=== PATIENT | female | born 1935 | race Two or more races ===

== ENCOUNTER → 2021-12-05 | Outpatient (CLI) | payer MEDICAID ==
[~2021-12-05] MED LIST: IBUP400T22 PO
[2021-12-05 08:59] LABS: Alanine Aminotransferase 20 U/L (13-56); Alkaline Phosphatase 96 U/L (45-117); Anion Gap 8 (5-15); Aspartate Aminotransferase 17 U/L (15-37); BUN/Creatinine Ratio 18.5; Blood Urea Nitrogen 17 mg/dL (7-18); Calcium 9.2 mg/dL (8.5-10.1); Carbon Dioxide 24 mmol/L (21-32); Chloride 108 mmol/L (98-107); Glucose 107 mg/dL (74-106); Potassium 4.3 mmol/L (3.5-5.1); Sodium 140 mmol/L (136-145)
[2021-12-05 09:00] LABS: Albumin 3.9 g/dL (3.4-5.0); Bilirubin, Total 1.5 mg/dL (0.2-1.0); Cholesterol 174 mg/dL (< 200); HDL Cholesterol 35 mg/dL (40-59); Total Protein 7.6 g/dL (6.4-8.2); Triglycerides 470 mg/dL (< 150)
[2021-12-05 09:01] LABS: GFR African American 75 mL/min; GFR Non-African American 62 mL/min
[2021-12-05 09:25] LABS: Basophils # (auto) 0 10 ^3/uL (0-0.2); Eosinophils # (auto) 0.1 10 ^3/uL (0-0.8); Eosinophils % (auto) 2.2 % (0.0-7.0); Hemoglobin 14.1 g/dL (12.2-16.2); Lymphocytes # (auto) 1.1 10 ^3/uL (0.4-5.4); Lymphocytes % (auto) 22.8 % (10.0-50.0); Mean Corpuscular Hemoglobin 27.9 pg (28.0-32.0); Mean Corpuscular Hgb Conc. 32.8 g/dL (32.0-36.0); Mean Corpuscular Volume 85.2 fL (80.0-100.0); Monocytes # (auto) 0.5 10 ^3/uL (0-1.3); Monocytes % (auto) 10.6 % (0.0-12.0); Neutrophils # (auto) 3.2 10 ^3/uL (1.6-8.6); Neutrophils % (auto) 64.4 % (37.0-80.0); Nucleated Red Blood Cells % 0.2 %; Red Blood Cells 5.04 10^6/uL (4.0-5.20); Red Cell Distribution Width 13.6 % (11.8-14.3); White Blood Cell 4.9 10^3/uL (4.4-10.8)
== END | disposition home or self-care (01) ==
LOC: LAB 07:46
PROVIDERS: ATTEND Student in an Organized Health Care Education/Training Program
DX: R53.1 Weakness (principal)
CPT/HCPCS: 36415; 80053; 80061; 82306; 83036; 84443; 85025

== ENCOUNTER 2022-02-12 14:28 | Inpatient (IN) | payer MEDICAID ==
[~2022-02-12] VITALS: Ht 152.4 cm; Wt 57.1 kg
[2022-02-12 16:18] LABS: Basophils # (auto) 0.1 10 ^3/uL (0-0.2); Basophils % (auto) 1.1 % (0.0-2.0); Eosinophils # (auto) 0.2 10 ^3/uL (0-0.8); Hematocrit 42.8 % (36.0-46.0); Hemoglobin 14.6 g/dL (12.2-16.2); Lymphocytes # (auto) 1.2 10 ^3/uL (0.4-5.4); Lymphocytes % (auto) 13.8 % (10.0-50.0); Mean Corpuscular Hemoglobin 28.9 pg (28.0-32.0); Mean Corpuscular Volume 84.8 fL (80.0-100.0); Monocytes # (auto) 0.7 10 ^3/uL (0-1.3); Neutrophils # (auto) 6.5 10 ^3/uL (1.6-8.6); Neutrophils % (auto) 75.1 % (37.0-80.0); Red Blood Cells 5.05 10^6/uL (4.0-5.20); Red Cell Distribution Width 13.7 % (11.8-14.3); White Blood Cell 8.6 10^3/uL (4.4-10.8)
[2022-02-12 16:28] LABS: Albumin 4.1 g/dL (3.4-5.0); Calcium 9.4 mg/dL (8.5-10.1); Potassium 3.6 mmol/L (3.5-5.1)
[2022-02-12 16:37] LABS: BUN/Creatinine Ratio 17.8; Bilirubin, Total 1.2 mg/dL (0.2-1.0)
[2022-02-12] MEDS ORDERED: DOCUSATE SOD 100 MG CAP PO PRN (18:45)
[2022-02-12] MEDS ORDERED: ONDANSETRON HCL 4 MG/2 ML VIAL IV PRN (18:45)
[2022-02-12] MEDS ORDERED: ACETAMINOPHEN 325 MG TAB PO PRN (18:45)
[2022-02-12] MEDS ORDERED: MORPHINE SULFATE INJECTION 2 MG/ML SYRG IV PRN (18:45)
[2022-02-12] MEDS ORDERED: SODIUM CHLORIDE 0.9% 1,000 ML IV SCH (18:45)
[2022-02-12] MEDS ORDERED: HYDROcodone-ACET 5/325MG TAB PO PRN (18:45)
[2022-02-12 23:43] VITALS: BP 144/75
[2022-02-13] VITALS (7 sets, daily range): BP systolic 111–144; BP diastolic 56–75
[2022-02-13] MEDS ORDERED: ACET-1156 PO (04:05)
[2022-02-13 06:24] LABS: Basophils # (auto) 0.1 10 ^3/uL (0-0.2); Basophils % (auto) 1.3 % (0.0-2.0); Eosinophils # (auto) 0.2 10 ^3/uL (0-0.8); Eosinophils % (auto) 2.8 % (0.0-7.0); Lymphocytes % (auto) 14.3 % (10.0-50.0); Mean Corpuscular Hemoglobin 28.9 pg (28.0-32.0); Mean Corpuscular Hgb Conc. 34.1 g/dL (32.0-36.0); Mean Corpuscular Volume 84.6 fL (80.0-100.0); Monocytes # (auto) 0.7 10 ^3/uL (0-1.3); Monocytes % (auto) 9.9 % (0.0-12.0); Neutrophils # (auto) 5.2 10 ^3/uL (1.6-8.6); Neutrophils % (auto) 71.7 % (37.0-80.0); Nucleated Red Blood Cells % 0.3 %; Red Blood Cells 4.85 10^6/uL (4.0-5.20); Red Cell Distribution Width 13.6 % (11.8-14.3); White Blood Cell 7.3 10^3/uL (4.4-10.8)
[2022-02-13 06:33] LABS: Albumin 3.8 g/dL (3.4-5.0); BUN/Creatinine Ratio 18.3; Calcium 9.1 mg/dL (8.5-10.1); Potassium 3.7 mmol/L (3.5-5.1)
[2022-02-13 06:35] LABS: Bilirubin, Total 1.7 mg/dL (0.2-1.0); Total Protein 7.2 g/dL (6.4-8.2)
[2022-02-13] MEDS: ENOXAPARIN SOD 30 MG/0.3 ML SYRINGE SC SCH (10:08)
[2022-02-13 14:03] LABS: Urine Bacteria NONE SEEN /hpf (None Seen); Urine Blood Negative /uL (Negative); Urine Specific Gravity 1.012 (1.001-1.035); Urine WBC 1 /hpf (0 - 5)
[2022-02-14 04:36] VITALS: BP 116/64
[2022-02-14 08:40] VITALS: BP 104/58
[2022-02-14] MEDS: ENOXAPARIN SOD 30 MG/0.3 ML SYRINGE SC SCH (11:27)
[2022-02-14 12:40] VITALS: BP 123/75
[2022-02-14] MEDS ORDERED: IOHEXOL 300 MG/ML 100ML BOTTLE IJ ONE (14:21)
[2022-02-14] MEDS ORDERED: methylPREDNISolone ACETATE 80 MG/ML VL ONE (14:24)
[2022-02-14] MEDS ORDERED: BUPIVACAINE HCL 0.25% P/F 10 ML VIAL ONE (14:24)
[2022-02-14] MEDS ORDERED: LIDOCAINE 2%HCL (LOCAL ANESTH.) INJ 10ml MDV ONE ×2 (14:24)
[2022-02-14 16:18] LABS: INR 1.02 (0.9-1.15); Partial Thromboplastin Time 27.7 sec (23.6-33.0)
[2022-02-14 16:52] VITALS: BP 127/72
[2022-02-14 20:00] VITALS: BP 112/80
[2022-02-14 21:55] VITALS: BP_SYST 112; BP_SYST 124; BP_DIAS 45; BP_DIAS 80
[2022-02-15 04:38] VITALS: BP 118/61
[2022-02-15 09:00] VITALS: BP_SYST 125; BP_SYST 140; BP_DIAS 69; BP_DIAS 71
[2022-02-15] MEDS: ENOXAPARIN SOD 30 MG/0.3 ML SYRINGE SC SCH (09:43)
[2022-02-15 13:00] VITALS: BP_SYST 104; BP_SYST 120; BP_DIAS 54; BP_DIAS 72
[2022-02-15 17:00] VITALS: BP 122/65
== END 2022-02-15 17:40 | disposition home or self-care (01) | DRG 351 ==
LOC: ER 14:28 → OVERFLOW 18:43 → WEST WING 21:45
PROVIDERS: ADMIT Internal Medicine; ATTEND Internal Medicine
PROC: 3E0U33Z Introduction of Anti-inflammatory into Joints, Percutaneous Approach (ICD-10-PCS; principal; 2022-02-14)
DX: M19.011 Primary osteoarthritis, right shoulder (principal); N17.0 Acute kidney failure with tubular necrosis; G89.29 Other chronic pain; S46.911A Strain of unspecified muscle, fascia and tendon at shoulder and upper arm level, right arm, initial encounter; Z20.822 Contact with and (suspected) exposure to COVID-19; Z66 Do not resuscitate; Z93.3 Colostomy status; Z80.0 Family history of malignant neoplasm of digestive organs; Z82.49 Family history of ischemic heart disease and other diseases of the circulatory system; Z90.49 Acquired absence of other specified parts of digestive tract; Z88.2 Allergy status to sulfonamides
CPT/HCPCS: 36415; 71250; 73020; 73221; 77002; 80053; 81001; 85025; 85610; 85730; 93005; 93306; 96360; 97116; 97163; 97530; G0378; J2001; J3490

== ENCOUNTER 2022-04-30 13:21 | Inpatient (IN) | payer MEDICAID ==
[~2022-04-30] VITALS: Ht 152.4 cm; Wt 46.8 kg
[~2022-04-30 13:21] MED LIST changes: +ACET-1156 PO
[2022-04-30] MEDS ORDERED: NITROGLYCERIN 0.4 MG SL TAB SL PRN (14:45)
[2022-04-30] MEDS ORDERED: MORPHINE SULFATE INJ 2 MG/ml SYRG IV PRN ×2 (14:45)
[2022-04-30] MEDS ORDERED: IOHEXOL 300 MG/ML 100ML BOTTLE IJ ONE (15:00)
[2022-04-30 15:40] LABS: Urine Bacteria NONE SEEN /hpf (None Seen); Urine Blood Negative /uL (Negative); Urine Mucus FEW (None Seen); Urine Specific Gravity 1.028 (1.001-1.035); Urine WBC 29 /hpf (0 - 5)
[2022-04-30 16:07] LABS: Basophils # (auto) 0.1 10 ^3/uL (0-0.2); Basophils % (auto) 0.9 % (0.0-2.0); Eosinophils # (auto) 0.1 10 ^3/uL (0-0.8); Hematocrit 45.3 % (36.0-46.0); Hemoglobin 14.8 g/dL (12.2-16.2); Lymphocytes # (auto) 1.4 10 ^3/uL (0.4-5.4); Lymphocytes % (auto) 19.3 % (10.0-50.0); Mean Corpuscular Hemoglobin 28.3 pg (28.0-32.0); Mean Corpuscular Hgb Conc. 32.7 g/dL (32.0-36.0); Mean Corpuscular Volume 86.4 fL (80.0-100.0); Monocytes # (auto) 0.5 10 ^3/uL (0-1.3); Monocytes % (auto) 7.6 % (0.0-12.0); Neutrophils # (auto) 5.1 10 ^3/uL (1.6-8.6); Neutrophils % (auto) 71.2 % (37.0-80.0); Nucleated Red Blood Cells % 0.1 %; Red Blood Cells 5.25 10^6/uL (4.0-5.20); Red Cell Distribution Width 13.3 % (11.8-14.3); White Blood Cell 7.1 10^3/uL (4.4-10.8)
[2022-04-30 16:29] LABS: Albumin 4.1 g/dL (3.4-5.0); Calcium 9.6 mg/dL (8.5-10.1); Magnesium 2.6 mg/dL (1.6-2.6); Potassium 4.2 mmol/L (3.5-5.1)
[2022-04-30 16:31] LABS: BUN/Creatinine Ratio 21.7
[2022-04-30] MEDS: SODIUM CHLORIDE 0.9% 1,000 ML IV SCH (16:32)
[2022-04-30 16:35] LABS: Bilirubin, Total 1.7 mg/dL (0.2-1.0); Phosphorus 3.2 mg/dL (2.5-4.90); Total Protein 7.1 g/dL (6.4-8.2)
[2022-04-30] MEDS ORDERED: cefTRIAXone 1GM/50ML D5W 50 ML IV ONE (16:45)
[2022-04-30 17:00] VITALS: BP 129/65
[2022-04-30 21:36] VITALS: BP 116/42
[2022-04-30] MEDS: ONDANSETRON HCL 4 MG/2 ML VIAL IV PRN (23:41)
[2022-05-01] MEDS: ACETAMINOPHEN 325 MG TAB PO PRN ×3 (03:35→10:00)
[2022-05-01 05:00] VITALS: BP 142/64
[2022-05-01] MEDS: ONDANSETRON HCL 4 MG/2 ML VIAL IV PRN (08:52)
[2022-05-01] MEDS: cefTRIAXone 1GM/50ML D5W 50 ML IV SCH (09:00)
[2022-05-01 09:20] VITALS: BP 152/71
[2022-05-01] MEDS ORDERED: ONDANSETRON HCL 4 MG/2 ML VIAL IV PRN (10:45)
[2022-05-01] MEDS ORDERED: traMADol HCL 50 MG TAB PO PRN (10:45)
[2022-05-01] MEDS: SODIUM CHLORIDE 0.9% 1,000 ML IV SCH (11:22)
[2022-05-01 12:34] VITALS: BP 122/59
[2022-05-01 16:35] VITALS: BP 124/70
[2022-05-01 21:30] VITALS: BP 114/59
[2022-05-02] MEDS: SODIUM CHLORIDE 0.9% 1,000 ML IV SCH (00:05)
[2022-05-02 05:00] VITALS: BP 115/58
[2022-05-02] MEDS: ACETAMINOPHEN 325 MG TAB PO PRN ×2 (08:20→15:02)
[2022-05-02] MEDS: cefTRIAXone 1GM/50ML D5W 50 ML IV SCH (08:21)
[2022-05-02 09:00] VITALS: BP 129/69
[2022-05-02 13:00] VITALS: BP 116/62
[2022-05-02 14:33] VITALS: BP 116/62
== END 2022-05-02 16:30 | disposition hospice, home (50) | DRG 58 ==
LOC: TELE 13:21 → TELE-CENTR 14:24 → CENTRAL 14:39
PROVIDERS: ADMIT Internal Medicine; ATTEND Internal Medicine
DX: D49.6 Neoplasm of unspecified behavior of brain (principal); K56.609 Unspecified intestinal obstruction, unspecified as to partial versus complete obstruction; G91.9 Hydrocephalus, unspecified; F03.90 Unspecified dementia, unspecified severity, without behavioral disturbance, psychotic disturbance, mood disturbance, and anxiety; N39.0 Urinary tract infection, site not specified; H91.92 Unspecified hearing loss, left ear; Z20.822 Contact with and (suspected) exposure to COVID-19; Z51.5 Encounter for palliative care; Z93.3 Colostomy status; Z88.2 Allergy status to sulfonamides
CPT/HCPCS: 36415; 70470; 71045; 80053; 81001; 82607; 83735; 84100; 84443; 85025; 87086; 92610; G0378; J0696; J2405

== ENCOUNTER 2022-11-15 12:48 | Inpatient (IN) | payer MEDICAID ==
[~2022-11-15] VITALS: Ht 154.9 cm; Wt 38.1 kg
[2022-11-15 14:15] LABS: Basophils # (auto) 0 10 ^3/uL (0-0.2); Basophils % (auto) 0.3 % (0.0-2.0); Eosinophils # (auto) 0 10 ^3/uL (0-0.8); Eosinophils % (auto) 0.2 % (0.0-7.0); Hematocrit 33.9 % (36.0-46.0); Hemoglobin 11.1 g/dL (12.2-16.2); Lymphocytes # (auto) 0.6 10 ^3/uL (0.4-5.4); Lymphocytes % (auto) 5.7 % (10.0-50.0); Mean Corpuscular Hemoglobin 28.5 pg (28.0-32.0); Mean Corpuscular Hgb Conc. 32.7 g/dL (32.0-36.0); Mean Corpuscular Volume 87.1 fL (80.0-100.0); Monocytes % (auto) 10.2 % (0.0-12.0); Neutrophils # (auto) 8.1 10 ^3/uL (1.6-8.6); Neutrophils % (auto) 83.6 % (37.0-80.0); Red Blood Cells 3.89 10^6/uL (4.0-5.20); Red Cell Distribution Width 13.3 % (11.8-14.3); White Blood Cell 9.7 10^3/uL (4.4-10.8)
[2022-11-15 14:39] LABS: Albumin 3.1 g/dL (3.4-5.0); BUN/Creatinine Ratio 36.4; Calcium 8.8 mg/dL (8.5-10.1); Potassium 4.2 mmol/L (3.5-5.1)
[2022-11-15 14:41] LABS: Bilirubin, Total 2.7 mg/dL (0.2-1.0); Total Protein 6.1 g/dL (6.4-8.2)
[2022-11-15 14:47] LABS: INR 0.95 (0.9-1.15); Partial Thromboplastin Time 25.2 sec (24.6-33.4)
[2022-11-15] MEDS ORDERED: MAALOX PLUS or MAALOX 30 ML PO PRN (15:00)
[2022-11-15] MEDS ORDERED: ONDANSETRON HCL 4 MG/2 ML VIAL IV PRN (15:00)
[2022-11-15] MEDS ORDERED: MORPHINE SULFATE INJ 2 MG/ml SYRG IV PRN (15:00)
[2022-11-15] MEDS ORDERED: DOCUSATE SOD 100 MG CAP PO PRN (15:00)
[2022-11-15] MEDS ORDERED: HYDROcodone-ACET 5/325MG TAB PO PRN (15:00)
[2022-11-15] MEDS: SODIUM CHLORIDE 0.9% 1,000 ML IV SCH (19:14)
[2022-11-15 19:31] LABS: Urine Bacteria MANY /hpf (None Seen); Urine Blood 1+ /uL (Negative); Urine Mucus FEW (None Seen); Urine Specific Gravity 1.024 (1.001-1.035); Urine WBC 35 /hpf (0 - 5)
[2022-11-15] MEDS: ACETAMINOPHEN 325 MG TAB PO PRN (23:59)
[2022-11-16] VITALS (7 sets, daily range): BP systolic 105–147; BP diastolic 54–83
[2022-11-16 07:01] LABS: Basophils # (auto) 0 10 ^3/uL (0-0.2); Basophils % (auto) 0.5 % (0.0-2.0); Eosinophils # (auto) 0.1 10 ^3/uL (0-0.8); Eosinophils % (auto) 0.7 % (0.0-7.0); Lymphocytes # (auto) 0.7 10 ^3/uL (0.4-5.4); Lymphocytes % (auto) 8.7 % (10.0-50.0); Monocytes # (auto) 0.9 10 ^3/uL (0-1.3); Monocytes % (auto) 11.3 % (0.0-12.0); Neutrophils % (auto) 78.8 % (37.0-80.0); Nucleated Red Blood Cells % 0.1 %; Red Blood Cells 3.71 10^6/uL (4.0-5.20); White Blood Cell 7.6 10^3/uL (4.4-10.8)
[2022-11-16 07:02] LABS: Hematocrit 31.7 % (36.0-46.0); Hemoglobin 10.6 g/dL (12.2-16.2); Mean Corpuscular Hemoglobin 28.6 pg (28.0-32.0); Mean Corpuscular Hgb Conc. 33.5 g/dL (32.0-36.0); Mean Corpuscular Volume 85.3 fL (80.0-100.0); Red Cell Distribution Width 13.2 % (11.8-14.3)
[2022-11-16 07:21] LABS: Calcium 8.6 mg/dL (8.5-10.1); Potassium 4.5 mmol/L (3.5-5.1)
[2022-11-16 07:23] LABS: BUN/Creatinine Ratio 37.7
[2022-11-16] MEDS ORDERED: cefTRIAXone 1GM/50ML D5W 50 ML IV ONE (11:00)
[2022-11-16] MEDS: SODIUM CHLORIDE 0.9% 1,000 ML IV SCH (11:29)
[2022-11-16] MEDS ORDERED: LIDOCAINE 1%HCL (LOCAL ANESTH) 10 ML MDV ONE (11:33)
[2022-11-16] MEDS ORDERED: TRANEXAMIC ACID 20 ML ONE (11:33)
[2022-11-16] MEDS: ACETAMINOPHEN 325 MG TAB PO PRN (11:38)
[2022-11-16] MEDS ORDERED: VANCOMYCIN HCL 1000 MG VL ONE (12:12)
[2022-11-16] MEDS ORDERED: fentaNYL CITRATE 100 MCG/2 ML VL ONE ×2 (12:29→15:59)
[2022-11-16] MEDS ORDERED: MORPHINE SULF PF 5 MG/10 ML VIAL ONE (12:36)
[2022-11-16] MEDS ORDERED: BUPIVACAINE/DEXTROSE MPF 0.75% 2 ML AMP IT ONE (12:40)
[2022-11-16] MEDS ORDERED: NALOXONE HCL 0.4 MG/ML VIAL IV PRN ×2 (15:30)
[2022-11-16] MEDS ORDERED: ePHEDrine SULFATE 50 MG/ML AMP IV PRN (15:30)
[2022-11-16] MEDS ORDERED: ONDANSETRON HCL 4 MG/2 ML VIAL IV PRN ×2 (15:30)
[2022-11-16] MEDS ORDERED: ROCURONIUM 10MG/ML 10ML VIAL IV ONE (15:59)
[2022-11-16] MEDS ORDERED: MIDAZOLAM HCL 2MG/2ML 2ml VIAL (1mg/ml) ONE ×2 (15:59→16:52)
[2022-11-16] MEDS ORDERED: ONDANSETRON HCL 4 MG/2 ML VIAL ONE (17:37)
[2022-11-16] MEDS ORDERED: PROPOFOL 10 MG/ML 20 ML IV ONE (17:38)
[2022-11-16] MEDS: ceFAZolin 1GM/50ML 50 ML IV SCH (22:00)
[2022-11-17] VITALS (24 sets, daily range): BP systolic 93–122; BP diastolic 16–57
[2022-11-17] MEDS: SODIUM CHLORIDE 0.9% 1,000 ML IV SCH (00:20)
[2022-11-17] MEDS: ceFAZolin 1GM/50ML 50 ML IV SCH ×2 (05:14→14:28)
[2022-11-17] MEDS: ACETAMINOPHEN 325 MG TAB PO PRN ×4 (05:24→22:06)
[2022-11-17] MEDS ORDERED: cefTRIAXone 1GM/50ML D5W 50 ML IV SCH (09:00)
[2022-11-17] MEDS: ENOXAPARIN SOD 30 MG/0.3 ML SYRINGE SC SCH (09:55)
[2022-11-17] MEDS: CELECOXIB 100 MG CAP PO SCH (22:05)
[2022-11-18] VITALS (7 sets, daily range): BP systolic 105–121; BP diastolic 46–56
[2022-11-18] MEDS: ACETAMINOPHEN 325 MG TAB PO PRN (05:30)
[2022-11-18 07:10] LABS: Eosinophils # (auto) 0.1 10 ^3/uL (0-0.8); Lymphocytes # (auto) 0.5 10 ^3/uL (0.4-5.4); Red Cell Distribution Width 13.4 % (11.8-14.3)
[2022-11-18 07:14] LABS: Basophils # (auto) 0 10 ^3/uL (0-0.2); Basophils % (auto) 0.5 % (0.0-2.0); Eosinophils % (auto) 1.2 % (0.0-7.0); Hemoglobin 7.9 g/dL (12.2-16.2); Lymphocytes % (auto) 5.9 % (10.0-50.0); Mean Corpuscular Hemoglobin 29.4 pg (28.0-32.0); Mean Corpuscular Hgb Conc. 34.2 g/dL (32.0-36.0); Monocytes # (auto) 0.9 10 ^3/uL (0-1.3); Monocytes % (auto) 11.1 % (0.0-12.0); Neutrophils # (auto) 6.9 10 ^3/uL (1.6-8.6); Neutrophils % (auto) 81.3 % (37.0-80.0); Red Blood Cells 2.67 10^6/uL (4.0-5.20); White Blood Cell 8.5 10^3/uL (4.4-10.8)
[2022-11-18 07:25] LABS: BUN/Creatinine Ratio 28.3; Calcium 8.3 mg/dL (8.5-10.1); Potassium 3.5 mmol/L (3.5-5.1)
[2022-11-18] MEDS: cefTRIAXone 1GM/50ML D5W 50 ML IV SCH (09:16)
[2022-11-18] MEDS: CELECOXIB 100 MG CAP PO SCH ×2 (10:00→22:24)
[2022-11-18] MEDS: ENOXAPARIN SOD 30 MG/0.3 ML SYRINGE SC SCH (10:34)
[2022-11-19 05:00] VITALS: BP 108/47
[2022-11-19] MEDS: cefTRIAXone 1GM/50ML D5W 50 ML IV SCH (08:54)
[2022-11-19] MEDS: CELECOXIB 100 MG CAP PO SCH ×3 (08:55→22:18)
[2022-11-19] MEDS: ENOXAPARIN SOD 30 MG/0.3 ML SYRINGE SC SCH (08:55)
[2022-11-19] MEDS: ACETAMINOPHEN 325 MG TAB PO PRN (08:59)
[2022-11-19 09:00] VITALS: BP 86/42
[2022-11-19 13:00] VITALS: BP 93/44
[2022-11-19] MEDS ORDERED: BACDST PO (14:08)
[2022-11-19] MEDS ORDERED: ACET-1156 PO (14:08)
[2022-11-19 17:00] VITALS: BP 100/49
[2022-11-19 22:00] VITALS: BP 128/68
[2022-11-20] MEDS: ACETAMINOPHEN 325 MG TAB PO PRN (04:40)
[2022-11-20 04:42] VITALS: BP 128/60
[2022-11-20 07:30] VITALS: BP 120/58
[2022-11-20 08:45] VITALS: BP 120/58
[2022-11-20] MEDS: CELECOXIB 100 MG CAP PO SCH (08:52)
[2022-11-20] MEDS: cefTRIAXone 1GM/50ML D5W 50 ML IV SCH (08:53)
[2022-11-20] MEDS: ENOXAPARIN SOD 30 MG/0.3 ML SYRINGE SC SCH (10:44)
[2022-11-20 12:37] VITALS: BP 105/62
[2022-11-20 16:38] VITALS: BP 121/56
== END 2022-11-20 18:50 | DRG 308 ==
LOC: ER 12:48 → OVERFLOW 14:55 → WEST WING 22:45 → TELE-WESTW 11-16 15:07 → WEST WING 11-18 18:08
PROVIDERS: ADMIT Hospitalist; ATTEND Hospitalist
PROC: 0QS706Z Reposition Left Upper Femur with Intramedullary Internal Fixation Device, Open Approach (ICD-10-PCS; principal; 2022-11-16 12:45)
DX: S72.142A Displaced intertrochanteric fracture of left femur, initial encounter for closed fracture (principal); E44.0 Moderate protein-calorie malnutrition; E78.5 Hyperlipidemia, unspecified; W05.0XXA Fall from non-moving wheelchair, initial encounter; I10 Essential (primary) hypertension; Z20.822 Contact with and (suspected) exposure to COVID-19; N39.0 Urinary tract infection, site not specified; Z88.2 Allergy status to sulfonamides; Z80.0 Family history of malignant neoplasm of digestive organs; Z82.49 Family history of ischemic heart disease and other diseases of the circulatory system; Z90.49 Acquired absence of other specified parts of digestive tract; Y93.89 Activity, other specified; Y92.89 Other specified places as the place of occurrence of the external cause; Y99.8 Other external cause status; Z68.1 Body mass index [BMI] 19.9 or less, adult
CPT/HCPCS: 36415; 71045; 72170; 72192; 73501; 73502; 76000; 80048; 80053; 81001; 84484; 85025; 85610; 85730; 86850; 86900; 86901; 87426; 93005; 93306; 97163; A4565; G0378; J0690; J0696; J2001; J2250; J2405; J2704